=== PATIENT | male | born 2000 | race Hispanic/Latino ===

== ENCOUNTER 2022-02-20 10:52 | Emergency (ER) | payer OTHER ==
[2022-02-20] VITALS (7 sets, daily range): BP systolic 104–130; BP diastolic 60–79
[~2022-02-20] VITALS: Ht 172.7 cm; Wt 66.0 kg
== END 2022-02-20 12:43 | disposition home or self-care (01) | DRG 556 ==
LOC: ED 10:52
DX: M25.512 Pain in left shoulder (principal); W11.XXXA Fall on and from ladder, initial encounter; Y93.89 Activity, other specified; Y92.74 Orchard as the place of occurrence of the external cause; Y99.0 Civilian activity done for income or pay